=== PATIENT | female | born 1960 | race Caucasian/White ===

== ENCOUNTER 2022-10-23 20:53 | Emergency (ER) | payer MEDICAID, SELFPAY ==
[2022-10-23 21:01] VITALS: BP 142/99; PULSE 74; RESP 18; TEMP 36.6; O2SAT 94; BMI 35.6
--- NOTE | 2022-10-23 21:23 | ED_ITS ---
HPI - Skin/Abscess/Foreign Bdy General: Chief complaint: Skin/Abscess/Foreign Body Stated complaint: think bugs are in skin all over Time Seen by Provider: 10/23/22 21:07 History of Present Illness: Patient presents to the ER with complaints of parasites on and under her skin. Patient says this been going on for 6 months. Patient says she cannot sit however patient did not bring any of these parasites with her. Patient says has them to. Patient is continues to be fidgety and cannot sit still. Says she has been treated for these by the use of scabies cream but this did not help. She says no one has ever done any work-up on her they all just at her like she is crazy. Review of Systems General: Reports: 10 or more systems reviewed and unremarkable except in HPI and below PFSH ED PFSH: Social History Smoking and tobacco status: current every day smoker (1/2 PPD) Alcohol intake: never Substance/Drug Use: former Date of last use: previously had medical [employer] card Desire information about substance/drug rehabilitation?: No Caregiver/support person: No Lives independently: No Household members: family Marital status: service: No Current occupational status: disabled Current gender identity: Female Special edilson needs: No Agree to transfusion: Yes Physical Exam Const: COMMON NORMALS: no acute distress, average body habitus, patient oriented x3, no limitations, healthy appearing, alert and well nourished HENMT: COMMON NORMALS: normocephalic, atraumatic, hearing grossly normal bilaterally, external ears normal, Normal external nose present and moist oral mucous membranes HEAD & SCALP: normocephalic and atraumatic NOSE: Normal external nose present EXTERNAL EAR: Yes external ears normal Eye: COMMON NORMALS: Equal, round and reactive pupils present, EOMs intact bilaterally, conjunctivae normal and no scleral icterus CONJUNCTIVA: Yes conjunctivae normal PUPIL: Yes Equal, round and reactive pupils present Neck/C-Spine: COMMON NORMALS: full ROM, no lymphadenopathy, supple, no meningeal signs, no JVD and Thyroid normal THYROID: Thyroid normal Chest: COMMONS NORMALS: normal inspection of the chest and normal palpation of entire chest wall Resp: COMMON NORMALS: normal respiratory effort, No retractions, No use of accessory muscles and clear to auscultation bilaterally AUSCULTATION: clear to auscultation bilaterally Cardio: COMMON NORMALS: no JVD, regular rate, regular rhythm, S1 normal heart sound present, S2 normal heart sound present, No gallops present (Cardio), No clicks present (Cardio), No murmurs present (Cardio) and No rub (Cardio) RATE: regular rate RHYTHM: regular rhythm HEART SOUNDS: S1 normal heart sound present and S2 normal heart sound present GI: COMMON NORMALS: Normal to inspection, nondistended, normoactive bowel sounds present, Soft to palpation, non-tender, No hepatosplenomegaly present and no masses PALPATION: Yes Soft to palpation and Yes No hepatosplenomegaly present Neuro: COMMON NORMALS: patient oriented x3 SENSORIUM/ORIENTATION: Yes alert MENINGEAL SIGNS: Yes no meningeal signs Course Vital Signs: Vital signs: Vital Signs Temperature 97.8 F 10/23/22 21:01 Pulse Rate 74 10/23/22 21:01 Respiratory Rate 18 10/23/22 21:01 Blood Pressure 142/99 10/23/22 21:01 Pulse Oximetry 94 10/23/22 21:01 Oxygen Delivery Me thod Room Air 10/23/22 21:01 MDM - Skin/Abscess/Foreign Bdy Medicial Decision Making Patient presents to the ER with complaints of parasites all over her body inside and outside. Patient states she has been seen multiple times for these and used scabies site medicine with no avail. Patient is refusing to give us a urine sample at this time. Patient states she does want to be discharged. Patient be discharged home. Patient can follow-up with her primary care doctor. Differential Diagnosis Unlikely abscess of skin or subcutaneous tissue, viral exanthem, dermatophytosis, urticaria, herpes zoster, allergic reaction to drug, cellulitis, eczema, insect bites, impetigo or contact dermatitis Medical Records I reviewed the patient's medical records. Lab Data I reviewed the patient's lab results. 10/23/22 21:52 10/23/22 21:52 Laboratory Results WBC 11.9 10^3/uL (4.0-10.0) H 10/23/22 21:52 RBC 4.91 10^6/uL (4.1-5.3) 10/23/22 21:52 Hgb 14.7 g/dL (11.5-15.3) 10/23/22 21:52 Hct 45.4 % (37.0-47.0) 10/23/22 21:52 MCV 92.5 fl (81-99) 10/23/22 21:52 MCH 29.9 pg (28.0-34.0) 10/23/22 21:52 MCHC 32.4 g/dL (30.0-36.0) 10/23/22 21:52 RDW 13.9 % (12.1-15.1) 10/23/22 21:52 Plt Count 304 10^3/cmm (130-400) 10/23/22 21:52 MPV 11.6 fL (7.4-10.4) H 10/23/22 21:52 Neut % (Auto) 56.7 % 10/23/22 21:52 Lymph % (Auto) 34.7 % 10/23/22 21:52 [place] % (Auto) 7.2 % 10/23/22 21:52 Eos % (Auto) 0.8 % 10/23/22 21:52 Baso % (Auto) 0.3 % 10/23/22 21:52 Neut # (Auto) 6.72 10^3/uL (1.8-7.7) 10/23/22 21:52 Lymph # (Auto) 4.1 10^3/uL (0.8-4.8) 10/23/22 21:52 [place] # (Auto) 0.9 10^3/uL (0.2-0.9) 10/23/22 21:52 Eos # (Auto) 0.1 10^3/uL (0.0-0.8) 10/23/22 21:52 Baso # (Auto) 0.0 10^3/uL (0.0-0.1) 10/23/22 21:52 Nucleated RBC % (auto) 0 % 10/23/22 21:52 Nucleated RBCs # 0.0 /100WBC 10/23/22 21:52 Sodium 137 mmol/L (136-145) 10/23/22 21:52 Potassium 3.9 mmol/L (3.5-5.1) 10/23/22 21:52 Chloride 102 mmol/L (98-107) 10/23/22 21:52 Carbon Dioxide 25 mmol/L (22-29) 10/23/22 21:52 Anion Gap 13.9 (5-19) 10/23/22 21:52 BUN 17 mg/dL (8-23) 10/23/22 21:52 Creatinine 0.6 mg/dL (0.5-0.9) 10/23/22 21:52 GFR Calculation 101.0 mL/min (90-130) 10/23/22 21:52 Glucose 111 mg/dL (65-115) 10/23/22 21:52 Calculated Osmolality 286 mOsm/kg (285-295) 10/23/22 21:52 Calcium 8.8 mg/dL (8.5-10.5) 10/23/22 21:52 Total Bilirubin 0.2 mg/dL (0.15-1.2) 10/23/22 21:52 AST 20 U/L (0-32) 10/23/22 21:52 ALT 22 U/L (0-33) 10/23/22 21:52 Alkaline Phosphatase 94 U/L (35-105) 10/23/22 21:52 Total Protein 7.2 g/dL (6.6-8.7) 10/23/22 21:52 Albumin 3.8 g/dL (3.5-5.2) 10/23/22 21:52 Globulin 3.4 g/dL (1.3-4.6) 10/23/22 21:52 Discharge Plan Discharge Patient Disposition: Home Clinical Impression: Delusions of parasitosis Condition: Stable Prescriptions: No Action fluticasone propionate 50 mcg/actuation spray,suspension 1 spray intranasal DAILY Rx Instructions: administer into each nostril omeprazole 40 mg capsule,delayed release(DR/EC) 40 mg PO DAILY eszopiclone [Lunesta] 3 mg tablet 3 mg PO .qhs Qty: 30 3RF sulfamethoxazole-trimethoprim [Bactrim DS] 800-160 mg tablet 1 tab PO BID 10 Days Qty: 20 0RF mupirocin 2 % ointment 1 applic topical BID Qty: 22 2RF Rx Instructions: on lesions and in both nostrils for 3 weeks ivermectin 3 mg tablet 15,000 mcg PO Q10D Qty: 10 0RF valsartan 160 mg tablet See Rx Instructions .ROUTE .COMPLEX Qty: 30 0RF Dose Instruction: TAKE ONE TABLET BY MOUTH EVERY DAY Rx Instructions: TAKE ONE TABLET BY MOUTH EVERY DAY amlodipine 10 mg tablet See Rx Instructions .ROUTE .COMPLEX Qty: 30 0RF Dose Instruction: TAKE ONE TABLET BY MOUTH EVERY DAY Rx Instructions: TAKE ONE TABLET BY MOUTH EVERY DAY buspirone 7.5 mg tablet See Rx Instructions .ROUTE .COMPLEX Qty: 90 0RF Dose Instruction: TAKE ONE TABLET BY MOUTH THREE TIMES DAILY FOR ANXIETY Rx Instructions: TAKE ONE TABLET BY MOUTH THREE TIMES DAILY FOR ANXIETY duloxetine 60 mg capsule,delayed release(DR/EC) See Rx Instructions .ROUTE .COMPLEX Qty: 30 0RF Dose Instruction: TAKE ONE CAPSULE BY MOUTH EVERY DAY Rx Instructions: TAKE ONE CAPSULE BY MOUTH EVERY DAY propranolol 20 mg tablet See Rx Instructions .ROUTE .COMPLEX Qty: 60 0RF Dose Instruction: TAKE ONE TABLET BY MOUTH TWICE DAILY Rx Instructions: TAKE ONE TABLET BY MOUTH TWICE DAILY Discharge Orders: Discharge ED (Routine); Ordered 10/23/22 Ordered By: Lemuel Emmanuel Referrals: Jacoby Quiros [Primary Care Provider] - 1 week Activity Restrictions/Additional Instructions: Please follow-up with your primary care doctor in the next week to discuss your infestation with parasites. Coding Level of Care Code ED [employer] for Rodrigo Delatorre
[2022-10-23 21:59] LABS: Basophils % 0.3 %; Eosinophils # 0.1 10^3/uL (0.0-0.8); Eosinophils % 0.8 %; Hematocrit 45.4 % (37.0-47.0); Hemoglobin 14.7 g/dL (11.5-15.3); Lymphocytes # 4.1 10^3/uL (0.8-4.8); Lymphocytes % 34.7 %; Mean Corpuscular HGB Conc 32.4 g/dL (30.0-36.0); Mean Corpuscular Hemoglobin 29.9 pg (28.0-34.0); Mean Corpuscular Volume 92.5 fl (81-99); Mean Platelet Volume 11.6 fL (7.4-10.4); Monocytes # 0.9 10^3/uL (0.2-0.9); Monocytes % 7.2 %; Neutrophils # 6.72 10^3/uL (1.8-7.7); Neutrophils % 56.7 %; Nucleated Red Blood Cells % 0 %; Platelet Count 304 10^3/cmm (130-400); Red Blood Count 4.91 10^6/uL (4.1-5.3); Red Cell Distribution Width 13.9 % (12.1-15.1); White Blood Count 11.9 10^3/uL (4.0-10.0)
[2022-10-23 22:16] LABS: Alanine Aminotransferase 22 U/L (0-33); Albumin Level 3.8 g/dL (3.5-5.2); Alkaline Phosphatase 94 U/L (35-105); Anion Gap 13.9 (5-19); Aspartate Amino Transferase 20 U/L (0-32); Blood Urea Nitrogen 17 mg/dL (8-23); Calcium 8.8 mg/dL (8.5-10.5); Carbon Dioxide 25 mmol/L (22-29); Chloride 102 mmol/L (98-107); Creatinine Clr Calc Pharmacy 118.6699; Globulin 3.4 g/dL (1.3-4.6); Glucose 111 mg/dL (65-115); Osmolality Calculated 286 mOsm/kg (285-295); Potassium 3.9 mmol/L (3.5-5.1); Sodium 137 mmol/L (136-145); Total Bilirubin 0.2 mg/dL (0.15-1.2); Total Protein 7.2 g/dL (6.6-8.7)
--- NOTE | 2022-10-23 22:47 | PC.NURSE ---
PT UP FOR DC DUE TO REFUSING FURTHER TESTING. PT IMMEDIATELY ATTEMPTED TO EXIT ER WITHOUT RECEIVING DC INSTRUCTIONS STATING IF YOURE NOT GOING TO KEEP ME JUST LET ME FUCKING OUT OF HERE. NURSE AGAIN TRIED TO DELIVER DC INSTRUCTIONS AND PT REFUSED.
== END 2022-10-23 22:50 | disposition home or self-care (01) ==
PROVIDERS: Emergency Provider Emergency Medicine; PCP Family Medicine
DX: F22 Delusional disorders (principal)
CPT/HCPCS: 36415; 80053; 85025; 99283

== ENCOUNTER 2024-04-02 18:51 | Emergency (ER) | payer MEDICAID, SELFPAY ==
[2024-04-02 18:56] VITALS: BP 128/72; PULSE 87; RESP 28; TEMP 36.7; O2SAT 96; BMI 36.3
[2024-04-02] MEDS: LORazepam 2 mg Tablet PO (19:35)
--- NOTE | 2024-04-02 19:36 | W.ED.SKABFB ---
Documented by User: [email or web address] Abdul 04/02/24 20:19 HPI - Skin/Abscess/Foreign Bdy General: Chief complaint: Skin/Abscess/Foreign Body Stated complaint: SoB thinks parisites white things coming out Time Seen by Provider: 04/02/24 19:03 Source: patient Mode of arrival: ambulatory Limitations: no limitations History of Present Illness: Patient is a 63-year-old female who presents to the emergency department complaining of parasites under her skin chronically for years but worsening recently. Was seen here for the same thing earlier last year, but left without being evaluated due to us requesting a urinalysis. She presents back, appearing severely agitated and is writhing around ED bed at time of examination. She is stating that she has been pulling white bugs off of her skin, states that no doctor she goes to listens to her. Adamantly denying drug use. She denies being scabies, as she has been treated with permethrin in the past and this has not been anything. She notes diffuse itching and pain. She is very difficult to understand as she is agitated, she states that her son recently was hospitalized and due to the same parasites. Spouse/significant other in the room stating that he has seen these bugs himself, he is not having any symptoms. MD complaint: other ( Parasites under skin ) Onset (ago): year(s) Location: generalized Quality: foreign body sensation Pain Consistency: constant Relieving factors: none Exacerbating factors: none Context: none Associated symptoms: Deny chills, fever(s), nausea or vomiting Related Data Home Medications Medication Instructions Recorded Confirmed fluticasone propionate 50 1 spray intranasal DAILY 04/01/21 08/13/22 mcg/actuation nasal spray,suspension omeprazole 40 mg capsule,delayed 40 mg PO DAILY 04/01/21 08/13/22 release Previous Rx's Medication Instructions Recorded eszopiclone 3 mg tablet (Lunesta) 3 mg PO .qhs #30 tabs 04/01/21 valsartan 160 mg tablet See Rx Instructions .Route 06/03/21 .COMPLEX #30 tabs amlodipine 10 mg tablet See Rx Instructions .Route 07/09/21 .COMPLEX #30 tabs buspirone 7.5 mg tablet See Rx Instructions .Route 03/09/22 .COMPLEX #90 tabs duloxetine 60 mg capsule,delayed See Rx Instructions .Route 07/09/21 release .COMPLEX #30 caps propranolol 20 mg tablet See Rx Instructions .Route 07/09/21 .COMPLEX #60 tabs ivermectin 3 mg tablet 15,000 mcg PO Q10D 2 doses #10 tabs 08/13/22 mupirocin 2 % topical ointment 1 applic topical BID #22 grams 08/13/22 sulfamethoxazole 800 1 tab PO BID 10 days #20 tabs 08/13/22 mg-trimethoprim 160 mg tablet (Bactrim DS) Allergies Allergy/AdvReac Type Severity Reaction Status Date / Time influenza virus vaccine ts AdvReac Severe severe Verified 10/23/22 21:08 [id number] (36 mos,up) NVD, [From Fluarix] SWELLING AT INJECTION SITE ziprasidone [From Geodon] AdvReac Severe hallucinati Verified 10/23/22 21:08 ons aripiprazole [From Abilify] AdvReac Intermediate hallucinati Verified 10/23/22 21:08 ons trazodone AdvReac Intermediate hallucinati Verified 10/23/22 21:08 ons tuberculin,PPD,multi-puncture AdvReac Intermediate false Verified 10/23/22 21:08 positive, arm swelled up Review of Systems General: Reports: 10 or more systems reviewed and unremarkable except in HPI and below Const: Denies: fever(s), chills or fatigue Eyes: Denies: change in vision ENMT: Denies: throat pain, ear or mastoid pain or nasal discharge Card: Denies: chest pain, palpitations, swelling of feet/ankles or lightheadedness Resp: Denies: dyspnea, productive cough or wheezing GI: Denies: abdominal pain, nausea, vomiting, diarrhea or constipation : Denies: flank pain, difficulty voiding, dysuria or urinary frequency Musc: Denies: neck pain, back pain or joint pain Skin/Breast: Reports: pruritus, skin pain and other ( Parasites under skin ) Neuro: Denies: headache(s), numbness in extremities or weakness in extremities PFSH ED PFSH: Social History Smoking and tobacco/nicotine status: current every day tobacco/nicotine user (1/2 PPD) Alcohol intake: never Substance/Drug Use: former Date of last use: previously had medical [employer] card Caregiver/support person: No Lives independently: No Household members: family Marital status: service: No Current occupational status: disabled Current gender identity: Female Special edilson needs: No Agree to transfusion: Yes Physical Exam Const: OTHER: Patient appearing extremely agitated, writhing around ED bed. There is no observable rash or foreign body. HENMT: COMMON NORMALS: normocephalic and atraumatic HEAD & SCALP: normocephalic and atraumatic Eye: COMMON NORMALS: EOMs intact bilaterally and conjunctivae normal CONJUNCTIVA: Yes conjunctivae normal Neck/C-Spine: COMMON NORMALS: full ROM, no lymphadenopathy, supple and no meningeal signs Resp: COMMON NORMALS: normal respiratory effort, No use of accessory muscles and clear to auscultation bilaterally AUSCULTATION: clear to auscultation bilaterally Cardio: COMMON NORMALS: regular rate and regular rhythm RATE: regular rate RHYTHM: regular rhythm Extremity: COMMON NORMALS: full ROM and capillary refill normal Neuro: MENINGEAL SIGNS: Yes no meningeal signs Psych: APPEARANCE: Yes unkempt and Yes disheveled ATTITUDE: Yes paranoid ACTIVITY/MOTOR BEHAVIOR: Yes fidgeting SPEECH: Yes incoherent Skin: COMMON NORMALS: no rashes or lesions noted, no wounds and turgor normal NARRATIVE SKIN EXAM: Rash or lesions of any kind. Areas where she is reporting active itching and pain do not reveal any signs of foreign body or lesion whatsoever. There are diffuse lichenification's, evidence of itching. There are no burrowing with her lesions, specifically her interdigital exam is normal with her hands and feet. GENERAL SKIN EXAM: no rashes or lesions noted and turgor normal Course Vital Signs: Vital signs: Vital Signs Temperature 98.0 F 04/02/24 18:56 Pulse Rate 87 04/02/24 18:56 Respiratory Rate 28 H 04/02/24 18:56 Blood Pressure 128/72 04/02/24 18:56 Pulse Oximetry 96 04/02/24 18:56 Oxygen Delivery Me thod Room Air 04/02/24 18:56 MDM - Skin/Abscess/Foreign Bdy Medicial Decision Making Patient presented for complaints of parasites on her skin. Was seen here a year ago for the same complaint, denied urine drug screen at that time. This time agreed to it, did test positive for meth. On exam there were no evidence of lesions other than where she has been itching, which was diffusely. Ordered some basic blood work which was unremarkable. Gave her dose of Ativan, on recheck was notably more calm and stating she was ready to go home. Informed her to follow-up with primary care for further evaluation. Return precautions given. Lab Data 04/02/24 19:47 04/02/24 19:47 Laboratory Results WBC 11.39 10^3/uL (3.29-11.43) 04/02/24 19:47 RBC 5.25 10^6/uL (3.85-5.65) 04/02/24 19:47 Hgb 15.50 g/dL (11.27-16.99) 04/02/24 19:47 Hct 49.0 % (36-47) H 04/02/24 19:47 MCV 93.3 fl (85-98) 04/02/24 19:47 MCH 29.5 pg (27-33) 04/02/24 19:47 MCHC 31.6 g/dL (30-55) 04/02/24 19:47 RDW 13.9 % (12.1-15.1) 04/02/24 19:47 Plt Count 328 10^3/cmm (157-399) 04/02/24 19:47 MPV 10.3 fL (7.4-10.4) 04/02/24 19:47 Neut % (Auto) 63.5 % 04/02/24 19:47 Lymph % (Auto) 27.3 % 04/02/24 19:47 Schleicher % (Auto) 6.6 % 04/02/24 19:47 Eos % (Auto) 2.0 % 04/02/24 19:47 Baso % (Auto) 0.3 % 04/02/24 19:47 Neut # (Auto) 7.24 10^3/uL (1.8-7.7) 04/02/24 19:47 Lymph # (Auto) 3.1 10^3/uL (0.8-4.8) 04/02/24 19:47 Schleicher # (Auto) 0.8 10^3/uL (0.2-0.9) 04/02/24 19:47 Eos # (Auto) 0.2 10^3/uL (0.0-0.8) 04/02/24 19:47 Baso # (Auto) 0.0 10^3/uL (0.0-0.1) 04/02/24 19:47 Nucleated RBC % (auto) 0 % 04/02/24 19:47 Nucleated RBCs # 0.0 /100WBC 04/02/24 19:47 Sodium 138 mmol/L (136-145) 04/02/24 19:47 Potassium 4.9 mmol/L (3.5-5.1) 04/02/24 19:47 Chloride 103 mmol/L (98-107) 04/02/24 19:47 Carbon Dioxide 25 mmol/L (22-29) 04/02/24 19:47 Anion Gap 14.9 (5-19) 04/02/24 19:47 BUN 18 mg/dL (8-23) 04/02/24 19:47 Creatinine 0.5 mg/dL (0.5-0.9) 04/02/24 19:47 GFR Calculation 124.2 mL/min (90-130) 04/02/24 19:47 Glucose 122 mg/dL (65-115) H 04/02/24 19:47 Calculated Osmolality 289 mOsm/kg (285-295) 04/02/24 19:47 Calcium 9.2 mg/dL (8.5-10.5) 04/02/24 19:47 Total Bilirubin 0.2 mg/dL (0.15-1.2) 04/02/24 19:47 AST 21 U/L (0-32) 04/02/24 19:47 ALT 20 U/L (0-33) 04/02/24 19:47 Alkaline Phosphatase 87 U/L (35-105) 04/02/24 19:47 Total Protein 7.8 g/dL (6.6-8.7) 04/02/24 19:47 Albumin 3.9 g/dL (3.5-5.2) 04/02/24 19:47 Globulin 3.9 g/dL (1.3-4.6) 04/02/24 19:47 Urine Opiates Screen Negative ng/mL (Negative) 04/02/24 19:37 Ur Barbiturates Screen Negative ng/mL (Negative) 04/02/24 19:37 Ur Phencyclidine Scrn Negative ng/mL (Negative) 04/02/24 19:37 Ur Amphetamines Screen Positive ng/mL (Negative) H 04/02/24 19:37 U Benzodiazepines Scrn Negative ng/mL (Negative) 04/02/24 19:37 Urine Cocaine Screen Negative ng/mL (Negative) 04/02/24 19:37 U Marijuana (THC) Screen Negative ng/mL (Negative) 04/02/24 19:37 No radiology studies performed this visit Discharge Plan Discharge Patient Disposition: Home Clinical Impression: Skin complaints Condition: Stable Prescriptions: No Action fluticasone propionate 50 mcg/actuation spray,suspension 1 spray intranasal DAILY Rx Instructions: administer into each nostril omeprazole 40 mg capsule,delayed release(DR/EC) 40 mg PO DAILY eszopiclone [Lunesta] 3 mg tablet 3 mg PO .qhs Qty: 30 3RF sulfamethoxazole-trimethoprim [Bactrim DS] 800-160 mg tablet 1 tab PO BID 10 Days Qty: 20 0RF mupirocin 2 % ointment 1 applic topical BID Qty: 22 2RF Rx Instructions: on lesions and in both nostrils for 3 weeks ivermectin 3 mg tablet 15,000 mcg PO Q10D Qty: 10 0RF valsartan 160 mg tablet See Rx Instructions .ROUTE .COMPLEX Qty: 30 0RF Dose Instruction: TAKE ONE TABLET BY MOUTH EVERY DAY Rx Instructions: TAKE ONE TABLET BY MOUTH EVERY DAY amlodipine 10 mg tablet See Rx Instructions .ROUTE .COMPLEX Qty: 30 0RF Dose Instruction: TAKE ONE TABLET BY MOUTH EVERY DAY Rx Instructions: TAKE ONE TABLET BY MOUTH EVERY DAY buspirone 7.5 mg tablet See Rx Instructions .ROUTE .COMPLEX Qty: 90 0RF Dose Instruction: TAKE ONE TABLET BY MOUTH THREE TIMES DAILY FOR ANXIETY Rx Instructions: TAKE ONE TABLET BY MOUTH THREE TIMES DAILY FOR ANXIETY duloxetine 60 mg capsule,delayed release(DR/EC) See Rx Instructions .ROUTE .COMPLEX Qty: 30 0RF Dose Instruction: TAKE ONE CAPSULE BY MOUTH EVERY DAY Rx Instructions: TAKE ONE CAPSULE BY MOUTH EVERY DAY propranolol 20 mg tablet See Rx Instructions .ROUTE .COMPLEX Qty: 60 0RF Dose Instruction: TAKE ONE TABLET BY MOUTH TWICE DAILY Rx Instructions: TAKE ONE TABLET BY MOUTH TWICE DAILY Discharge Orders: Discharge ED (Routine); Ordered 04/02/24 Ordered By: Sudarshan Liz Referrals: Jacoby Quiros [Primary Care Provider] - Activity Restrictions/Additional Instructions: Please follow-up with primary care for any further evaluation. You may return with any new or concerning symptoms. Coding Level of Care Code ED Fe[facility] Winder for Chg Fwd Documented by User: Oswaldo Poole, 04/02/24 22:47 HPI - Skin/Abscess/Foreign Bdy General: Chief complaint: Skin/Abscess/Foreign Body Stated complaint: SoB thinks parisites white things coming out Time Seen by Provider: 04/02/24 19:03 Related Data Home Medications Medication Instructions Recorded Confirmed fluticasone propionate 50 1 spray intranasal DAILY 04/01/21 08/13/22 mcg/actuation nasal spray,suspension omeprazole 40 mg capsule,delayed 40 mg PO DAILY 04/01/21 08/13/22 release Previous Rx's Medication Instructions Recorded eszopiclone 3 mg tablet (Lunesta) 3 mg PO .qhs #30 tabs 04/01/21 valsartan 160 mg tablet See Rx Instructions .Route 06/03/21 .COMPLEX #30 tabs amlodipine 10 mg tablet See Rx Instructions .Route 07/09/21 .COMPLEX #30 tabs buspirone 7.5 mg tablet See Rx Instructions .Route 07/09/21 .COMPLEX #90 tabs duloxetine 60 mg capsule,delayed See Rx Instructions .Route 07/09/21 release .COMPLEX #30 caps propranolol 20 mg tablet See Rx Instructions .Route 07/09/21 .COMPLEX #60 tabs ivermectin 3 mg tablet 15,000 mcg PO Q10D 2 doses #10 tabs 08/13/22 mupirocin 2 % topical ointment 1 applic topical BID #22 grams 08/13/22 sulfamethoxazole 800 1 tab PO BID 10 days #20 tabs 08/13/22 mg-trimethoprim 160 mg tablet (Bactrim DS) Allergies Allergy/AdvReac Type Severity Reaction Status Date / Time influenza virus vaccine ts AdvReac Severe severe Verified 10/23/22 21:08 [id number] (36 mos,up) NVD, [From Fluarix] SWELLING AT INJECTION SITE ziprasidone [From Geodon] AdvReac Severe hallucinati Verified 10/23/22 21:08 ons aripiprazole [From Abilify] AdvReac Intermediate hallucinati Verified 10/23/22 21:08 ons trazodone AdvReac Intermediate hallucinati Verified 10/23/22 21:08 ons tuberculin,PPD,multi-puncture AdvReac Intermediate false Verified 10/23/22 21:08 positive, arm swelled up [facility] ED PFSH: Social History Smoking and tobacco/nicotine status: current every day tobacco/nicotine user (1/2 PPD) Alcohol intake: never Substance/Drug Use: former Date of last use: previously had medical [employer] card Caregiver/support person: No Lives independently: No Household members: family Marital status: service: No Current occupational status: disabled Current gender identity: Female Special edilson needs: No Agree to transfusion: Yes Course Vital Signs: Vital signs: Vital Signs Temperature 98.0 F 04/02/24 18:56 Pulse Rate 87 04/02/24 18:56 Respiratory Rate 28 H 04/02/24 18:56 Blood Pressure 128/72 04/02/24 18:56 Pulse Oximetry 96 04/02/24 18:56 Oxygen Delivery Me thod Room Air 04/02/24 18:56 MDM - Skin/Abscess/Foreign Bdy Medicial Decision Making Patient presented for complaints of parasites on her skin. Was seen here a year ago for the same complaint, denied urine drug screen at that time. This time agreed to it, did test positive for meth. On exam there were no evidence of lesions other than where she has been itching, which was diffusely. Ordered some basic blood work which was unremarkable. Gave her dose of Ativan, on recheck was notably more calm and stating she was ready to go home. Informed her to follow-up with primary care for further evaluation. Return precautions given. This patient was originally seen by Mr. Shalonda PA-C.? I agree with his history, evaluation, and treatment. Lab Data 04/02/24 19:47 04/02/24 19:47 Laboratory Results WBC 11.39 10^3/uL (3.29-11.43) 04/02/24 19:47 RBC 5.25 10^6/uL (3.85-5.65) 04/02/24 19:47 Hgb 15.50 g/dL (11.27-16.99) 04/02/24 19:47 Hct 49.0 % (36-47) H 04/02/24 19:47 MCV 93.3 fl (85-98) 04/02/24 19:47 MCH 29.5 pg (27-33) 04/02/24 19:47 MCHC 31.6 g/dL (30-55) 04/02/24 19:47 RDW 13.9 % (12.1-15.1) 04/02/24 19:47 Plt Count 328 10^3/cmm (157-399) 04/02/24 19:47 MPV 10.3 fL (7.4-10.4) 04/02/24 19:47 Neut % (Auto) 63.5 % 04/02/24 19:47 Lymph % (Auto) 27.3 % 04/02/24 19:47 Schleicher % (Auto) 6.6 % 04/02/24 19:47 Eos % (Auto) 2.0 % 04/02/24 19:47 Baso % (Auto) 0.3 % 04/02/24 19:47 Neut # (Auto) 7.24 10^3/uL (1.8-7.7) 04/02/24 19:47 Lymph # (Auto) 3.1 10^3/uL (0.8-4.8) 04/02/24 19:47 Schleicher # (Auto) 0.8 10^3/uL (0.2-0.9) 04/02/24 19:47 Eos # (Auto) 0.2 10^3/uL (0.0-0.8) 04/02/24 19:47 Baso # (Auto) 0.0 10^3/uL (0.0-0.1) 04/02/24 19:47 Nucleated RBC % (auto) 0 % 04/02/24 19:47 Nucleated RBCs # 0.0 /100WBC 04/02/24 19:47 Sodium 138 mmol/L (136-145) 04/02/24 19:47 Potassium 4.9 mmol/L (3.5-5.1) 04/02/24 19:47 Chloride 103 mmol/L (98-107) 04/02/24 19:47 Carbon Dioxide 25 mmol/L (22-29) 04/02/24 19:47 Anion Gap 14.9 (5-19) 04/02/24 19:47 BUN 18 mg/dL (8-23) 04/02/24 19:47 Creatinine 0.5 mg/dL (0.5-0.9) 04/02/24 19:47 GFR Calculation 124.2 mL/min (90-130) 04/02/24 19:47 Glucose 122 mg/dL (65-115) H 04/02/24 19:47 Calculated Osmolality 289 mOsm/kg (285-295) 04/02/24 19:47 Calcium 9.2 mg/dL (8.5-10.5) 04/02/24 19:47 Total Bilirubin 0.2 mg/dL (0.15-1.2) 04/02/24 19:47 AST 21 U/L (0-32) 04/02/24 19:47 ALT 20 U/L (0-33) 04/02/24 19:47 Alkaline Phosphatase 87 U/L (35-105) 04/02/24 19:47 Total Protein 7.8 g/dL (6.6-8.7) 04/02/24 19:47 Albumin 3.9 g/dL (3.5-5.2) 04/02/24 19:47 Globulin 3.9 g/dL (1.3-4.6) 04/02/24 19:47 Urine Opiates Screen Negative ng/mL (Negative) 04/02/24 19:37 Ur Barbiturates Screen Negative ng/mL (Negative) 04/02/24 19:37 Ur Phencyclidine Scrn Negative ng/mL (Negative) 04/02/24 19:37 Ur Amphetamines Screen Positive ng/mL (Negative) H 04/02/24 19:37 U Benzodiazepines Scrn Negative ng/mL (Negative) 04/02/24 19:37 Urine Cocaine Screen Negative ng/mL (Negative) 04/02/24 19:37 U Marijuana (THC) Screen Negative ng/mL (Negative) 04/02/24 19:37 Discharge Plan Discharge Patient Disposition: Home Clinical Impression: Skin complaints Condition: Stable Prescriptions: No Action fluticasone propionate 50 mcg/actuation spray,suspension 1 spray intranasal DAILY Rx Instructions: administer into each nostril omeprazole 40 mg capsule,delayed release(DR/EC) 40 mg PO DAILY eszopiclone [Lunesta] 3 mg tablet 3 mg PO .qhs Qty: 30 3RF sulfamethoxazole-trimethoprim [Bactrim DS] 800-160 mg tablet 1 tab PO BID 10 Days Qty: 20 0RF mupirocin 2 % ointment 1 applic topical BID Qty: 22 2RF Rx Instructions: on lesions and in both nostrils for 3 weeks ivermectin 3 mg tablet 15,000 mcg PO Q10D Qty: 10 0RF valsartan 160 mg tablet See Rx Instructions .ROUTE .COMPLEX Qty: 30 0RF Dose Instruction: TAKE ONE TABLET BY MOUTH EVERY DAY Rx Instructions: TAKE ONE TABLET BY MOUTH EVERY DAY amlodipine 10 mg tablet See Rx Instructions .ROUTE .COMPLEX Qty: 30 0RF Dose Instruction: TAKE ONE TABLET BY MOUTH EVERY DAY Rx Instructions: TAKE ONE TABLET BY MOUTH EVERY DAY buspirone 7.5 mg tablet See Rx Instructions .ROUTE .COMPLEX Qty: 90 0RF Dose Instruction: TAKE ONE TABLET BY MOUTH THREE TIMES DAILY FOR ANXIETY Rx Instructions: TAKE ONE TABLET BY MOUTH THREE TIMES DAILY FOR ANXIETY duloxetine 60 mg capsule,delayed release(DR/EC) See Rx Instructions .ROUTE .COMPLEX Qty: 30 0RF Dose Instruction: TAKE ONE CAPSULE BY MOUTH EVERY DAY Rx Instructions: TAKE ONE CAPSULE BY MOUTH EVERY DAY propranolol 20 mg tablet See Rx Instructions .ROUTE .COMPLEX Qty: 60 0RF Dose Instruction: TAKE ONE TABLET BY MOUTH TWICE DAILY Rx Instructions: TAKE ONE TABLET BY MOUTH TWICE DAILY Discharge Orders: Discharge ED (Routine); Ordered 04/02/24 Ordered By: Sudarshan Liz Referrals: Jacoby Quiros [Primary Care Provider] - Activity Restrictions/Additional Instructions: Please follow-up with primary care for any further evaluation. You may return with any new or concerning symptoms. Coding Level of Care Code ED Fe[facility] Winder for Rodrigo Delatorre
[2024-04-02 19:55] LABS: Basophils % 0.3 %; Eosinophils # 0.2 10^3/uL (0.0-0.8); Lymphocytes # 3.1 10^3/uL (0.8-4.8); Lymphocytes % 27.3 %; Mean Corpuscular HGB Conc 31.6 g/dL (30-55); Mean Corpuscular Hemoglobin 29.5 pg (27-33); Mean Corpuscular Volume 93.3 fl (85-98); Mean Platelet Volume 10.3 fL (7.4-10.4); Monocytes # 0.8 10^3/uL (0.2-0.9); Monocytes % 6.6 %; Neutrophils # 7.24 10^3/uL (1.8-7.7); Neutrophils % 63.5 %; Nucleated Red Blood Cells % 0 %; Platelet Count 328 10^3/cmm (157-399); Red Blood Count 5.25 10^6/uL (3.85-5.65); Red Cell Distribution Width 13.9 % (12.1-15.1); White Blood Count 11.39 10^3/uL (3.29-11.43)
[2024-04-02 19:55] LABS: Amphetamines Screen Urine Positive (Negative); Barbiturates Screen Urine Negative (Negative); Benzodiazepines Screen Urine Negative (Negative); Cocaine Screen Urine Negative (Negative); Opiate Screen Urine Negative (Negative); PCP Screen Urine Negative (Negative); THC Screen Urine Negative (Negative)
[2024-04-02 20:08] LABS: Alanine Aminotransferase 20 U/L (0-33); Albumin Level 3.9 g/dL (3.5-5.2); Alkaline Phosphatase 87 U/L (35-105); Anion Gap 14.9 (5-19); Aspartate Amino Transferase 21 U/L (0-32); Blood Urea Nitrogen 18 mg/dL (8-23); Calcium 9.2 mg/dL (8.5-10.5); Carbon Dioxide 25 mmol/L (22-29); Chloride 103 mmol/L (98-107); Creatinine Clr Calc Pharmacy 141.8566; Globulin 3.9 g/dL (1.3-4.6); Glomerular Filtration Rate 124.2 mL/min (90-130); Glucose 122 mg/dL (65-115); Osmolality Calculated 289 mOsm/kg (285-295); Potassium 4.9 mmol/L (3.5-5.1); Sodium 138 mmol/L (136-145); Total Bilirubin 0.2 mg/dL (0.15-1.2); Total Protein 7.8 g/dL (6.6-8.7)
== END 2024-04-02 20:35 | disposition home or self-care (01) ==
PROVIDERS: Emergency Provider Physician Assistant; PCP Family Medicine
DX: Z03.89 Encounter for observation for other suspected diseases and conditions ruled out (principal); F17.210 Nicotine dependence, cigarettes, uncomplicated
CPT/HCPCS: 36415; 80053; 80306; 85025; 99283